=== PATIENT | female | born 1995 | race Caucasian/White ===

== ENCOUNTER 2016-11-12 11:46 | Emergency (ER) | payer OTHER ==
[~2016-11-12] VITALS: Ht 157.5 cm; Wt 80.5 kg
[2016-11-12 11:58] VITALS: Ht 157.5 cm; Wt 80.5 kg
[2016-11-12] MEDS ORDERED: morphine 4 MG/ML VIAL IV STA (14:24)
[2016-11-12 15:08] LABS: ADD SCAN DIFF NO
[2016-11-12 15:10] LABS: BASOPHIL # 0.1 10^3/ul (0.0-0.1); EOSINOPHILS # 0.1 10^3/ul (0.0-0.5); EOSINOPHILS % 1.7 % (0.0-7.0); HEMOGLOBIN 13.2 g/dl (12.0-16.0); LYMPHOCYTES # 2.2 10^3/ul (0.8-2.9); LYMPHOCYTES % 28.3 % (15.0-51.0); MEAN CORPUSCULAR HEMOGLOBIN 29.7 pg (29.0-33.0); MEAN CORPUSCULAR VOLUME 90.1 fl (82.0-101.0); MEAN PLATELET VOLUME 9.5 fl (7.4-10.4); MONOCYTE # 0.6 10^3/ul (0.3-0.9); MONOCYTES % 7.3 % (0.0-11.0); NEUTROPHIL # 4.5 10^3/ul (1.6-7.5); NEUTROPHILS % 57.1 % (39.0-77.0); PLATELET COUNT 382 10^3/UL (140-415); RED BLOOD COUNT 4.44 10^6/ul (4.20-5.40); RED CELL DISTRIBUTION WIDTH 13.2 % (11.5-14.5); WHITE BLOOD COUNT 7.9 10^3/ul (4.8-10.8)
[2016-11-12 15:13] LABS: ADD UMIC NO; URINE BILIRUBIN (Dip) NEGATIVE (NEGATIVE); URINE BLOOD (Dip) NEGATIVE (NEGATIVE); URINE COLOR LT. YELLOW (YELLOW); URINE GLUCOSE (Dip) NEGATIVE (NEGATIVE); URINE KETONES (Dip) NEGATIVE (NEGATIVE); URINE LEUKOCYTE ESTERASE (Dip) NEGATIVE (NEGATIVE); URINE NITRITE (Dip) NEGATIVE (NEGATIVE); URINE TOTAL PROTEIN (Dip) NEGATIVE (NEGATIVE); URINE UROBILINOGEN (Dip) 0.2 E.U./dL (0.1-1.0)
[2016-11-12 15:24] LABS: ALBUMIN/GLOBULIN RATIO 1.19
[2016-11-12 15:33] LABS: ALBUMIN 4.3 g/dl (3.3-4.9); BILIRUBIN,INDIRECT 0.4 mg/dl (0-1.1); BILIRUBIN,TOTAL 0.4 mg/dl (0.2-1.3); CALCIUM 9.3 mg/dl (8.4-10.2); CREATININE 0.54 mg/dl (0.44-1.00); POTASSIUM 3.8 mmol/L (3.5-5.1); TOTAL PROTEIN 7.9 g/dl (6.1-8.1)
[2016-11-12] MEDS ORDERED: SOD CHLORIDE 0.9% 100 ML ONE (16:07)
[2016-11-12] MEDS ORDERED: IOHEXOL 300MG/ML 150 ML BTL ONE (16:07)
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
[2016-11-12] MEDS ORDERED: HYDR-906 PO (16:49)
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
[2016-11-12 17:04] VITALS: BP 104/68; PULSE 62; RESP 20; TEMP 98.3
== END 2016-11-12 17:05 | disposition home or self-care (01) ==
LOC: FTE 11:46
DX: S30.0XXA Contusion of lower back and pelvis, initial encounter (principal); R10.2 Pelvic and perineal pain; V49.50XA Passenger injured in collision with unspecified motor vehicles in traffic accident, initial encounter
CPT/HCPCS: 70450; 74177; 80053; 81003; 83690; 85025; J2270; Q9967; Z7610; 36415; 96374

== ENCOUNTER 2017-06-29 13:30 | Emergency (ER) | payer OTHER ==
[~2017-06-29] VITALS: Ht 162.6 cm; Wt 82.4 kg
[~2017-06-29 13:30] MED LIST: HYDR-906 PO
[2017-06-29 13:46] VITALS: Ht 162.6 cm; Wt 82.4 kg
[2017-06-29] MEDS ORDERED: KETOROLAC 30 MG INJ IM STA (14:46)
[2017-06-29] MEDS ORDERED: IBUP-1542 PO (14:50)
[2017-06-29] MEDS ORDERED: CYCL5TAB PO (14:50)
[2017-06-29] MEDS ORDERED: ACET500C5 PO (14:50)
[2017-06-29] MEDS ORDERED: DIAZEPAM 5 MG TAB PO ONE (15:00)
--- NOTE | 2017-06-29 15:00 | ERD ---
ER Documentation Chief Complaint Chief Complaint low back pain, no trauma; symptoms today HPI 22-year-old female presents with right-sided low back pain that started today after trying to pickle solution maker her backpack from the ground. She describes pain that is diffuse in the lumbar region on the right side, it is nonradiating, worse with movement and better at sitting. She has not had any difficulty with urination, or loss of bowel bladder habits. She denies saddle anesthesia. ROS All systems reviewed and are negative except as per history of present illness. Medications Home Meds Active Scripts Cyclobenzaprine Hcl* (Cyclobenzaprine Hcl*) 5 Mg Tablet, 5 MG PO Q8H Y for PAIN , #15 TAB Prov:MARIO BANDA PA-C 06/29/17 Acetaminophen* (Tylophen*) 500 Mg Capsule, 1 CAP PO Q6H Y for PAIN AND OR ELEVATED TEMP, #20 CAP Prov:MARIO BANDA PA-C 06/29/17 Ibuprofen* (Motrin*) 600 Mg Tab, 600 MG PO Q6, #30 TAB Prov:MARIO BANDA PA-C 06/29/17 Hydrocodone/Acetaminophen ([place] 5-325 Tablet) 1 Each Tablet, 1 TAB PO Q6H Y for PAIN, #7 TAB Prov:DHARA GARCIA PA-C 11/12/16 Allergies Allergies: Coded Allergies: No Known Allergy (Unverified , 06/29/17) PMhx/Soc Hx Alcohol Use: Yes (OCASSIONAL) Hx Substance Use: No Hx Tobacco Use: No Physical Exam Vitals Vital Signs Date Time Temp Pulse Resp B/P Pulse Ox O2 Delivery O2 Flow Rate FiO2 06/29/17 13:46 98.8 76 18 119/66 97 Physical Exam General: Well-developed, well-nourished. The patient appears in no acute distress. HEENT: Head is normocephalic, atraumatic. No scleral icterus. Neck: Supple. Nontender. Lungs: Clear to auscultation. Normal air movement. Heart: Regular rate and rhythm. S1 and S2 are normal. No murmurs, gallops, or rubs. Abdomen: Soft, nontender, nondistended. Bowel sounds are normoactive. Back: There is no midline tenderness, paraspinal tenderness in the lumbar region on the right side. Strength to lower extremities 5 out of 5 bilaterally , gait is normal. Extremities: No clubbing or cyanosis. Normal pulses. Moving extremities x 4. No weakness. Neurologic: Alert and oriented 3. No focal deficits. Skin: Normal turgor. No rash or lesions. Results 24 hrs Current Medications Medications (Trade) Dose Ordered Sig/Jazmine Route PRN Reason Start Time Stop Time Status Last Admin Dose Admin Ketorolac Tromethamine (Toradol) 30 mg ONCE STAT IM 06/29/17 14:46 06/29/17 14:47 DC Diazepam (Valium) 2.5 mg ONCE ONCE PO 06/29/17 15:00 06/29/17 15:01 Procedures/MDM ED course: Urine is negative. She was given Toradol 30 mg IM and Valium 2.5 mg p.o. Medical decision makin-year-old female comes in with a lumbar strain, she has no neurologic symptoms, no signs of cauda equina, discitis, epidural abscess , epidural hematoma. Her pain started after she tried to lift up her backpack, there is no history of trauma, she does not warrant radiographic imaging. She was given Toradol and Valium, will be continue with ibuprofen and Flexeril at home. Departure Diagnosis: Primary Impression: Low back sprain Condition: Good Patient Instructions: Back Sprain/Strain MARIO BANDA PA-C Jun 29, 2017 14:59
== END 2017-06-29 15:10 | disposition home or self-care (01) ==
LOC: FTE 13:30
DX: S33.5XXA Sprain of ligaments of lumbar spine, initial encounter (principal); X58.XXXA Exposure to other specified factors, initial encounter; Y92.9 Unspecified place or not applicable
CPT/HCPCS: 96372; J1885; Z7502; Z7610